=== PATIENT | female | born 2000 | race Caucasian/White ===

== ENCOUNTER 2018-01-16 14:17 | Emergency (ER) | payer BC, OTHER | END 2018-01-16 14:54 | disposition home or self-care (01) | LOC: FTE 14:17 | DX: Z00.00 Encounter for general adult medical examination without abnormal findings (principal) | CPT/HCPCS: 99282 ==

== ENCOUNTER 2018-07-19 13:46 | Emergency (ER) | payer BC ==
[2018-07-19] MEDS: LIDOCAINE 1% (MDV) 10 ML INJ INJ (15:36)
== END 2018-07-19 15:43 | disposition home or self-care (01) ==
LOC: FTE 13:46
DX: Z18.89 Other specified retained foreign body fragments (principal)
CPT/HCPCS: 99282

== ENCOUNTER 2018-11-29 08:48 | Emergency (ER) | payer BC | END 2018-11-29 10:45 | disposition left against medical advice (07) | LOC: E/R 08:48 | DX: Z53.21 Procedure and treatment not carried out due to patient leaving prior to being seen by health care provider (principal) ==